=== PATIENT | female | born 1970 | race Two or more races ===

== ENCOUNTER 2018-07-18 17:48 | Observation (INO) | payer OTHER ==
[2018-07-18] MEDS ORDERED: ZOLPIDEM 5 MG TAB PO (19:30)
[2018-07-18] MEDS ORDERED: ONDANSETRON 4 MG INJ IV (19:30)
[2018-07-18] MEDS ORDERED: NACL 0.9% 3 ML SYG IV (19:30)
[2018-07-18] MEDS ORDERED: DOCUSATE SODIUM 100 MG CAP PO (19:30)
[2018-07-18] MEDS ORDERED: ACETAMINOPHEN 325 MG TAB PO (19:30)
[2018-07-18] MEDS ORDERED: NITROGLYCERIN (SL) 0.4 MG TAB SL (19:30)
[2018-07-18] MEDS ORDERED: MAGNESIUM HYDROXIDE 30ML CUP PO (19:30)
[2018-07-18] MEDS ORDERED: HYDROCODONE/APAP (5/325) TAB PO (19:30)
[2018-07-18] MEDS ORDERED: morphine 2 MG INJ IV (19:30)
[2018-07-18] MEDS: ALPRAZOLAM 1 MG TAB PO (20:29)
[2018-07-18] MEDS: DEXTROSE 5%-0.45% NACL 1,000 ML IV (23:54)
[2018-07-19 01:28] LABS: TROPONIN-I < 0.012 ng/ml (0.000-0.120)
[2018-07-19 06:18] LABS: ADD MAN DIFF? NO
[2018-07-19 06:25] LABS: BASOPHILS % 0.1 % (0.0-2.0); EOSINOPHILS % 0.1 % (0.0-7.0); HEMATOCRIT 35.3 % (37.0-47.0); LYMPHOCYTES # 1.2 10^3/ul (0.8-2.9); MEAN CORPUSCULAR VOLUME 91.2 fl (82.0-101.0); MEAN PLATELET VOLUME 11.5 fl (7.4-10.4); MONOCYTE # 0.7 10^3/ul (0.3-0.9); MONOCYTES % 5.4 % (0.0-11.0); NEUTROPHIL # 10.1 10^3/ul (1.6-7.5); NEUTROPHILS % 83.9 % (39.0-77.0); PLATELET COUNT 209 10^3/UL (140-415); RED BLOOD COUNT 3.87 10^6/ul (4.20-5.40); RED CELL DISTRIBUTION WIDTH 13.7 % (11.5-14.5)
[2018-07-19 06:25] LABS: WHITE BLOOD COUNT 12.1 10^3/ul (4.8-10.8)
[2018-07-19 06:52] LABS: TROPONIN-I < 0.012 ng/ml (0.000-0.120)
[2018-07-19 07:13] LABS: ANION GAP 9 (5-13); BLOOD UREA NITROGEN 11 mg/dl (7-20); CALCIUM 8.9 mg/dl (8.4-10.2); CARBON DIOXIDE 23 mmol/L (21-31); CHLORIDE 108 mmol/L (97-110); CHOL/HDL RATIO 2.3 RATIO; CHOLESTEROL 133 mg/dl (100-200); Estimated GFR > 60 mL/min (>60); GLUCOSE 104 mg/dl (70-220); HDL CHOLESTEROL 56 mg/dl (34-88); LDL CHOLESTEROL,CALCULATED 65 mg/dl; MAGNESIUM 2.1 mg/dl (1.7-2.5); PHOSPHORUS 3.7 mg/dl (2.5-4.9); POTASSIUM 3.6 mmol/L (3.5-5.1); SODIUM 140 mmol/L (135-144); TRIGLYCERIDES 58 mg/dl (0-149)
[2018-07-19 07:23] LABS: T3 UPTAKE 32.9 % (23.5-40.5)
[2018-07-19] MEDS: ENOXAPARIN 40 MG/0.4 ML SYG SC (08:29)
[2018-07-19] MEDS: DEXTROSE 5%-0.45% NACL 1,000 ML IV (12:14)
[2018-07-19] MEDS ORDERED: IBUPROFEN 800 MG TAB PO (15:30)
[2018-07-19] MEDS: NITROFURANTOIN (SR) 100 MG CAP PO (17:19)
[2018-07-20] MEDS: NITROFURANTOIN (SR) 100 MG CAP PO ×2 (01:02→09:00)
[2018-07-20 06:19] LABS: ADD MAN DIFF? NO
[2018-07-20 06:40] LABS: WHITE BLOOD COUNT 9.2 10^3/ul (4.8-10.8)
[2018-07-20 06:40] LABS: BASOPHILS % 0.2 % (0.0-2.0); EOSINOPHILS # 0.1 10^3/ul (0.0-0.5); EOSINOPHILS % 1.2 % (0.0-7.0); HEMATOCRIT 35.9 % (37.0-47.0); HEMOGLOBIN 12.1 g/dl (12.0-16.0); LYMPHOCYTES # 2.8 10^3/ul (0.8-2.9); LYMPHOCYTES % 30.6 % (15.0-51.0); MEAN CORPUSCULAR HEMOGLOBIN 31.1 pg (29.0-33.0); MEAN CORPUSCULAR HGB CONC 33.7 g/dl (32.0-37.0); MEAN CORPUSCULAR VOLUME 92.3 fl (82.0-101.0); MEAN PLATELET VOLUME 11.4 fl (7.4-10.4); MONOCYTE # 0.5 10^3/ul (0.3-0.9); MONOCYTES % 5.3 % (0.0-11.0); NEUTROPHIL # 5.7 10^3/ul (1.6-7.5); NEUTROPHILS % 62.5 % (39.0-77.0); PLATELET COUNT 206 10^3/UL (140-415); RED BLOOD COUNT 3.89 10^6/ul (4.20-5.40)
[2018-07-20 07:11] LABS: ALANINE AMINOTRANSFERASE 22 IU/L (13-69); ALBUMIN 3.2 g/dl (3.3-4.9); ALBUMIN/GLOBULIN RATIO 0.96; ALKALINE PHOSPHATASE 51 IU/L (42-121); ANION GAP 9 (5-13); ASPARTATE AMINO TRANSFERASE 16 IU/L (15-46); BILIRUBIN,INDIRECT 0.1 mg/dl (0-1.1); BILIRUBIN,TOTAL 0.1 mg/dl (0.2-1.3); BLOOD UREA NITROGEN 14 mg/dl (7-20); CALCIUM 8.9 mg/dl (8.4-10.2); CARBON DIOXIDE 23 mmol/L (21-31); CHLORIDE 107 mmol/L (97-110); CREATININE 0.64 mg/dl (0.44-1.00); Estimated GFR > 60 mL/min (>60); GLUCOSE 88 mg/dl (70-220); MAGNESIUM 2.1 mg/dl (1.7-2.5); PHOSPHORUS 3.1 mg/dl (2.5-4.9); POTASSIUM 3.7 mmol/L (3.5-5.1); SODIUM 139 mmol/L (135-144); TOTAL PROTEIN 6.5 g/dl (6.1-8.1)
[2018-07-20 07:15] LABS: LIPASE 44 U/L (23-300)
[2018-07-20] MEDS: ENOXAPARIN 40 MG/0.4 ML SYG SC (09:05)
[2018-07-20] MEDS: ASPIRIN 81 MG TAB PO (12:29)
== END 2018-07-20 15:32 | disposition home or self-care (01) ==
LOC: 6WM 17:48
PROVIDERS: Internal Medicine
DX: R07.89 Other chest pain (principal); E78.5 Hyperlipidemia, unspecified; N30.00 Acute cystitis without hematuria
CPT/HCPCS: 71045; 80048; 80053; 80061; 83036; 83690; 83735; 84100; 84436; 84443; 84479; 84484; 85025; 87086; 93306; 99217; G0378